=== PATIENT | female | born 1960 ===

== ENCOUNTER 2017-07-24 18:12 | Observation (INO) | payer OTHER ==
[2017-07-24 18:13] VITALS: BMI 33.9
[2017-07-24] MEDS ORDERED: Albuterol-Ipratrop 3 mg / 0.5 (3 ml) UD INH STA ×2 (20:02)
--- NOTE | 2017-07-24 20:32 | ED PDOC ---
HPI: SOB/CHF/COPD Time Seen by Provider: 07/24/17 19:19 Chief Complaint (Nursing): Shortness Of Breath Chief Complaint (Provider): Shortness Of Breath History Per: Patient History/Exam Limitations: no limitations Onset/Duration Of Symptoms: Days (x2 weeks) Current Symptoms Are (Timing): Still Present Additional Complaint(s): 56 year old female with previous medical history of asthma, lupus and hypertension, who presents to the emergency department for evaluation of worsening shortness of breath associated with dry cough and chest tightness ongoing for 2 weeks. Patient was seen by PCP yesterday, given Medrol Dose Pack and advised to go to ED if symptoms does not improve to rule out possible pneumonia. Denied any fever, chills, vomiting or diarrhea. PMD: Geo Sibley MD Past Medical History Reviewed: Historical Data, Nursing Documentation, Vital Signs Vital Signs: Last Vital Signs Temp 98.9 F 07/24/17 18:19 Pulse 106 H 07/24/17 18:19 Resp 18 07/24/17 18:42 BP 141/91 H 07/24/17 18:19 Pulse Ox 97 07/24/17 22:15 - Medical History PMH: Anxiety, Arthritis, Asthma, Back Problems, Bipolar Disorder, Depression, Gastritis, HTN, Osteoporosis, Rheumatoid Arthritis, Sleep Apnea Denies: Chronic Kidney Disease - Family History Family History: States: Unknown Family Hx - Social History Current smoker - smoking cessation education provided: No Alcohol: None Drugs: Denies - Immunization History Hx Tetanus Toxoid Vaccination: No Hx Influenza Vaccination: No Hx Pneumococcal Vaccination: No - Home Medications Home Medications: Ambulatory Orders Medication Instructions Recorded Albuterol/Ipratropium [Duoneb 3 3 mg PO BID 05/16/17 mg/0.5 mg (3 ml) UD] Fluticasone/Salmeterol 250/50 1 puff PO DAILY 05/16/17 [Advair Diskus 250/50] Hydroxychloroquine Sulfate 200 mg PO DAILY 05/16/17 [Plaquenil] Losartan [Cozaar] 25 mg PO DAILY 05/16/17 Montelukast [Singulair] 10 mg PO DAILY 05/16/17 Clindamycin [Cleocin] 300 mg PO TID 07/24/17 Tiotropium [Spiriva] 18 mcg PO DAILY 07/24/17 - Allergies Allergies/Adverse Reactions: Allergies Allergy/AdvReac Type Severity Reaction Status Date / Time clarithromycin [From Biaxin] Allergy RASH Verified 07/24/17 18:19 ibuprofen [From Motrin] Allergy ANAPHYLAXIS Verified 07/24/17 18:19 ketorolac Allergy SHORTNESS Verified 07/24/17 18:19 OF BREATH prednisone Allergy SHORTNESS Verified 07/24/17 18:19 OF BREATH Review of Systems ROS Statement: Except As Marked, All Systems Reviewed And Found Negative Constitutional: Negative for: Fever, Chills Cardiovascular: Positive for: Chest Pain ("tightness") Respiratory: Positive for: Cough (dry), Shortness of Breath Gastrointestinal: Negative for: Vomiting, Diarrhea Physical Exam - Reviewed Nursing Documentation Reviewed: Yes Vital Signs Reviewed: Yes - Physical Exam Appears: Positive for: No Acute Distress Head Exam: Positive for: ATRAUMATIC, NORMAL INSPECTION, NORMOCEPHALIC Cardiovascular/Chest: Positive for: Regular Rate, Rhythm, Chest Non Tender Respiratory: Positive for: Decreased Breath Sounds (and air intake), Wheezing ( expiratory bilaterally). Negative for: Normal Breath Sounds, Respiratory Distress Neurologic/Psych: Positive for: Alert (x3), Oriented - Laboratory Results Result Diagrams: 07/24/17 21:05 07/24/17 21:05 - ECG O2 Sat by Pulse Oximetry: 97 (RA) Pulse Ox Interpretation: Normal Medical Decision Making Medical Decision Making: Initial Impression: Asthma exacerbation Initial Plan: * EKG * CMP * Lact acid * CBC * CXR * Duoneb 3ml INH * Solu-Medrol 125mg IVP * Blood culture * Peak flow pre/post ____ Time: 5 --Labs: no significant abnormality. --CXR: no active disease. --Discussed case Dr. Sibley. --Patient placed on OBS due to persisting symptoms. Scribe Attestation: Documented by Rochelle Mercedes, acting as a scribe for Cristóbal Mares MD. Provider Scribe Attestation: All medical record entries made by the Scribe were at my direction and personally dictated by me. I have reviewed the chart and agree that the record accurately reflects my personal performance of the history, physical exam, medical decision making, and the department course for this patient. I have also personally directed, reviewed, and agree with the discharge instructions and disposition. Disposition - Clinical Impression Clinical Impression: Asthma exacerbation - Patient ED Disposition Is Patient to be Admitted: Yes Discussed With : Geo Sibley - Disposition Disposition Time: 21:30 Condition: FAIR - Pt Status Changed To: Hospital Disposition Of: Observation
[2017-07-24] MEDS ORDERED: Albuterol-Ipratrop 3 mg / 0.5 (3 ml) UD ONE (20:54)
[2017-07-24 21:25] LABS: BASO % 0.3 % (0.0-2.0); EOS % 0.4 % (0.0-4.0); HEMOGLOBIN 12.1 g/dL (12.0-16.0); LYMPH # 1.8 K/uL (1.0-4.3); MEAN CELL VOLUME 81.8 fl (81.0-99.0); MEAN CORPUSCULAR HEMOGLOBIN 25.8 pg (27.0-31.0); MEAN CORPUSCULAR HGB CONC 31.6 g/dL (33.0-37.0); MEAN PLATELET VOLUME 8.2 fl (7.2-11.7); MONO # 0.5 K/uL (0.0-0.8); MONO % 5.1 % (0.0-10.0); NEUT # 7.1 K/uL (1.8-7.0); NEUT % 75.2 % (50.0-75.0); RBC 4.7 Mil/uL (3.80-5.20); RED CELL DISTRIBUTION WIDTH 14.7 % (11.5-14.5); WHITE BLOOD COUNT 9.4 K/uL (4.8-10.8)
[2017-07-24 21:34] LABS: ALBUMIN 4.5 g/dL (3.5-5.0); ALT/SGPT 52 U/L (9-52); AST/SGOT 31 U/L (14-36); BLOOD UREA NITROGEN 17 mg/dl (7-17); CALCIUM 9.6 mg/dL (8.4-10.2); GFR AFRICAN-AMERICAN > 60; GFR NON-AFRICAN AMERICAN > 60
[2017-07-24 21:38] LABS: ALB/GLOB RATIO 1.2 (1.0-2.1)
[2017-07-25 03:22] VITALS: RESP 18
[2017-07-25 07:59] VITALS: PULSE 80; TEMP 97.5; O2SAT 95
[2017-07-25] MEDS ORDERED: Albuterol-Ipratrop 3 mg / 0.5 (3 ml) UD INH SCH (08:00)
[2017-07-25] MEDS ORDERED: methylPREDNISolone 80 MG in Sodium Chloride 0.9% 50 ML IVPB SCH (09:00)
--- NOTE | 2017-07-25 10:07 | RAD ---
HISTORY: COMPARISON: 08/17/2013 TECHNIQUE: Chest PA and lateral FINDINGS: LINES AND TUBES: None. LUNG AND PLEURA: The lungs are well inflated and clear. There is a stable subcentimeter calcified nodule in the right lower lobe. HEART AND MEDIASTINUM: The heart is not enlarged. The hilar and mediastinal contours are within normal limits. SKELETAL STRUCTURES: The bony structures are within normal limits for the patient's age. VISUALIZED UPPER ABDOMEN: Normal. OTHER FINDINGS: None. IMPRESSION: No active pulmonary disease.
[2017-07-25] MEDS ORDERED: Tiotropium 18 mcg Cap For Inhalation INH SCH (10:15)
[2017-07-25] MEDS ORDERED: Fluticasone-Salmeterol 250-50mcg Diskus INH SCH (10:15)
--- NOTE | 2017-07-25 10:31 | CP.PCM.DIS ---
Provider - Provider Date of Admission: 07/24/17 21:53 Attending physician: Geo Sibley MD Time Spent in preparation of Discharge (in minutes): 30 Diagnosis - Discharge Diagnosis (1) Connective tissue disease Status: Acute (2) Asthma exacerbation Status: Acute (3) Anxiety Status: Acute (4) Hypertension Status: Acute Hospital Course - Lab Results Lab Results: Most Recent Lab Values WBC 9.4 K/uL (4.8-10.8) 07/24/17 21:05 RBC 4.70 Mil/uL (3.80-5.20) 07/24/17 21:05 Hgb 12.1 g/dL (12.0-16.0) 07/24/17 21:05 Hct 38.5 % (34.0-47.0) 07/24/17 21:05 MCV 81.8 fl (81.0-99.0) 07/24/17 21:05 MCH 25.8 pg (27.0-31.0) L 07/24/17 21:05 MCHC 31.6 g/dL (33.0-37.0) L 07/24/17 21:05 RDW 14.7 % (11.5-14.5) H 07/24/17 21:05 Plt Count 233 K/uL (130-400) 07/24/17 21:05 MPV 8.2 fl (7.2-11.7) 07/24/17 21:05 Neut % (Auto) 75.2 % (50.0-75.0) H 07/24/17 21:05 Lymph % (Auto) 19.0 % (20.0-40.0) L 07/24/17 21:05 Bailey % (Auto) 5.1 % (0.0-10.0) 07/24/17 21:05 Eos % (Auto) 0.4 % (0.0-4.0) 07/24/17 21:05 Baso % (Auto) 0.3 % (0.0-2.0) 07/24/17 21:05 Neut # 7.1 K/uL (1.8-7.0) H 07/24/17 21:05 Lymph # 1.8 K/uL (1.0-4.3) 07/24/17 21:05 Bailey # 0.5 K/uL (0.0-0.8) 07/24/17 21:05 Eos # 0.0 K/uL (0.0-0.7) 07/24/17 21:05 Baso # 0.0 K/uL (0.0-0.2) 07/24/17 21:05 Sodium 144 mmol/l (132-148) 07/24/17 21:05 Potassium 4.2 MMOL/L (3.6-5.0) 07/24/17 21:05 Chloride 106 mmol/L (98-107) 07/24/17 21:05 Carbon Dioxide 23 mmol/L (22-30) 07/24/17 21:05 Anion Gap 19 (10-20) 07/24/17 21:05 BUN 17 mg/dl (7-17) 07/24/17 21:05 Creatinine 0.9 mg/dl (0.7-1.2) 07/24/17 21:05 Est GFR ( Amer) > 60 07/24/17 21:05 Est GFR (Non-Af Amer) > 60 07/24/17 21:05 Random Glucose 128 mg/dL (65-105) H 07/24/17 21:05 Lactic Acid 1.5 MMOL/L (0.7-2.1) 07/24/17 21:05 Calcium 9.6 mg/dL (8.4-10.2) 07/24/17 21:05 Total Bilirubin 0.3 mg/dl (0.2-1.3) 07/24/17 21:05 AST 31 U/L (14-36) 07/24/17 21:05 ALT 52 U/L (9-52) 07/24/17 21:05 Alkaline Phosphatase 71 U/L (38-126) 07/24/17 21:05 Total Protein 8.3 G/DL (6.3-8.2) H 07/24/17 21:05 Albumin 4.5 g/dL (3.5-5.0) 07/24/17 21:05 Globulin 3.7 gm/dL (2.2-3.9) 07/24/17 21:05 Albumin/Globulin Ratio 1.2 (1.0-2.1) 07/24/17 21:05 Influenza Typ A,B (EIA) Negative for flu a/b (NEGATIVE) 07/24/17 22:11 - Hospital Course Hospital Course: sob resolved Discharge Exam - Head Exam Head Exam: ATRAUMATIC, NORMAL INSPECTION, NORMOCEPHALIC - Eye Exam Eye Exam: EOMI, Normal appearance, PERRL Pupil Exam: NORMAL ACCOMODATION, PERRL - GI/Abdominal Exam GI & Abdominal Exam: Normal Bowel Sounds - Rectal Exam Rectal Exam: NORMAL INSPECTION - Neurological Exam Neurological exam: Alert, CN II-XII Intact, Normal Gait, Oriented x3, Reflexes Normal - Psychiatric Exam Psychiatric exam: Normal Affect, Normal Mood - Skin Skin Exam: Dry, Intact, Normal Color, Warm Discharge Plan - Follow Up Plan Condition: FAIR Disposition: HOME/ ROUTINE Patient education suggested?: Yes Additional Instructions: discharge today
--- NOTE | 2017-07-25 10:39 | CARD ---
APPROVED REPORT EKG Measurement Heart [id number] <Conclusion> Normal sinus rhythm Normal ECG
[2017-07-25 10:40] VITALS: BP 130/70
--- NOTE | 2017-07-25 12:06 | HP ---
HISTORY OF PRESENT ILLNESS: Ms. Lau is a 56-year-old female who was admitted via the emergency room because of shortness of breath while she was out shopping. She indicates that she felt chest tightness and shortness of breath. She called the ambulance and was brought to the emergency room where she was admitted for observation for acute asthma. PAST MEDICAL HISTORY: Hypertension, asthma, connective tissue disease. FAMILY HISTORY: Noncontributory. SOCIAL HISTORY: She does not drink or smoke and lives alone. REVIEW OF SYSTEMS: Essentially unremarkable for recurrent asthma background. PHYSICAL EXAMINATION GENERAL: The patient is alert, oriented, appears to be much more comfortable since admission. VITAL SIGNS: Blood pressure 130/73, pulse of 80, respiratory rate 18. She is afebrile. O2 sat 95% on room air. SKIN: Shows fair turgor. HEENT: Pupils are equal and reactive to light and accommodation. Mouth, fair hygiene. JVP flat. LUNGS: Clear. HEART: Regular. No murmurs or gallop. BREASTS: Normal. ABDOMEN: Soft, nontender. No organomegaly. EXTREMITIES: Shows no edema or cyanosis. CENTRAL NERVOUS SYSTEM: Grossly intact. LABORATORY DATA: Reviewed including chest x-ray. IMPRESSION: Acute asthma, hypertension, history of connective tissue disease. PLAN: Is to discharge the patient today on the same home medications. Advised followup in the office. Geo Sibley MD
[2017-07-25] MEDS ORDERED: Promethazine 12.5 mg/10 ml Syrup PO SCH (16:00)
== END 2017-07-25 14:07 | disposition home or self-care (01) ==
LOC: H.ER 18:12 → H.ERHOLD 21:53 → H.MEDSURG1 07-25 01:07
PROVIDERS: ADMIT Internal Medicine Pulmonary Disease; ATTEND Internal Medicine Pulmonary Disease
DX: J45.901 Unspecified asthma with (acute) exacerbation (principal); I10 Essential (primary) hypertension; M81.0 Age-related osteoporosis without current pathological fracture; M06.9 Rheumatoid arthritis, unspecified; F31.9 Bipolar disorder, unspecified; F41.9 Anxiety disorder, unspecified; K29.70 Gastritis, unspecified, without bleeding; M19.90 Unspecified osteoarthritis, unspecified site; G47.30 Sleep apnea, unspecified; M35.1 Other overlap syndromes
CPT/HCPCS: 71046; 80053; 83605; 85025; 87040; 87804; 93005; 94640; 96374; 99284; G0378; J2930